=== PATIENT | male | born 1940 | race Caucasian/White ===

== ENCOUNTER 2021-03-12 19:09 | Emergency (ER) | payer MEDICARE, OTHER ==
[2021-03-12 19:45] LABS: HEMOGLOBIN 13.9 gm/dl (14.0-17.5); RED BLOOD COUNT 4.57 M/UL (4.20-5.50); WHITE BLOOD COUNT 12.5 K/UL (4.5-11.0)
[2021-03-13] MEDS ORDERED: HYDROCODON-ACE1 EAC4 PO (00:51)
[2021-03-13] MEDS ORDERED: FLOMAX0.4 MG PO (00:51)
== END 2021-03-13 00:54 | disposition home or self-care (01) ==
LOC: ER1 19:09
PROVIDERS: Emergency Medicine
DX: N13.2 Hydronephrosis with renal and ureteral calculous obstruction (principal); I25.10 Atherosclerotic heart disease of native coronary artery without angina pectoris; E11.9 Type 2 diabetes mellitus without complications; I10 Essential (primary) hypertension; Z95.1 Presence of aortocoronary bypass graft
CPT/HCPCS: 80053; 81001; 85025; 87086; 99284